=== PATIENT | female | born 1980 | race Caucasian/White ===

== ENCOUNTER 2020-04-04 12:46 | Outpatient (CLI) | payer OTHER, SELFPAY | END 2020-04-04 12:47 | disposition home or self-care (01) | LOC: CHSLAB 12:50 | PROVIDERS: Visit Provider Obstetrics & Gynecology | DX: O26.851 Spotting complicating pregnancy, first trimester (principal) | CPT/HCPCS: 36415; 84702 ==

== ENCOUNTER 2020-04-06 18:39 | Outpatient (CLI) | payer OTHER, SELFPAY | END 2020-04-06 18:40 | disposition home or self-care (01) | LOC: CHSLAB 18:41 | PROVIDERS: PCP Obstetrics & Gynecology; Visit Provider Obstetrics & Gynecology | DX: O26.851 Spotting complicating pregnancy, first trimester (principal) | CPT/HCPCS: 36415; 84702 ==

== ENCOUNTER 2020-09-01 17:27 | Outpatient (CLI) | payer OTHER, SELFPAY ==
[2020-09-01 19:01] LABS: Hematocrit 35.2 % (35.0-49.0); Hemoglobin 11.9 g/dL (12.0-15.0)
[2020-09-01 19:47] LABS: Free T4 Free Thyroxine 0.85 ng/dL (0.76-1.46); Thyroid Stimulating Hormone 0.99 uIU/mL (0.36-3.74)
[2020-09-01 19:51] LABS: HIV 1 P24 AG Negative (Negative); HIV 1/2 AB Negative (Negative)
[2020-09-01 19:53] LABS: Glucose 1 Hour PP 50gm Dose 116 mg/dL (70-130)
[2020-09-07 16:32] LABS: Vitamin D 25 Hydroxy 50 ng/mL (30-100)
== END 2020-09-01 17:28 | disposition home or self-care (01) ==
LOC: CHSLAB 17:28
PROVIDERS: PCP Obstetrics & Gynecology; Visit Provider Obstetrics & Gynecology
DX: Z34.92 Encounter for supervision of normal pregnancy, unspecified, second trimester (principal)
CPT/HCPCS: 36415; 82306; 82947; 84439; 84443; 85014; 85018; 86703

== ENCOUNTER 2020-10-09 14:56 | Outpatient (CLI) | payer OTHER, SELFPAY ==
[2020-10-09] VITALS (31 sets, daily range): BP systolic 116–158; BP diastolic 62–90; PULSE 62–79; O2SAT 99–100
[2020-10-09 16:28] LABS: Basophils Percent Auto 0.3 % (0.2-1.2); Eosinophils Absolute Auto 0.1 K/mm3 (0-0.3); Eosinophils Percent Auto 1.1 % (0-4.4); Hematocrit 32.9 % (37.0-47.0); Hemoglobin 10.7 g/dL (12.0-15.0); Immature Granulocyte Absolute 0.05 K/mm3 (0.00-0.031); Immature Granulocyte Percent A 0.5 % (0-0.5); Lymphocytes Absolute Auto 1.78 K/mm3 (0.9-3.2); Lymphocytes Percent Auto 19.5 % (18.3-44.2); Mean Corpuscular HGB Conc 32.5 g/dl (32-36); Mean Corpuscular Hemoglobin 30.2 pg (26-34); Mean Corpuscular Volume 92.9 fl (80-100); Mean Platelet Volume 10.4 fl (7.4-10.4); Monocytes Absolute Auto 0.8 K/mm3 (0.1-0.6); Monocytes Percent Auto 8.2 % (2.6-8.5); Neutrophils Absolute Auto 6.4 K/mm3 (1.3-6.7); Neutrophils Percent Auto 70.4 % (45.5-73.1); Platelet Count Result 280 k/mm3 (150-375); Red Blood Count 3.54 M/mm3 (4.2-5.4); Red Cell Distribution Width 12.9 % (11.5-14.5); White Blood Count 9.1 K/mm3 (4.5-10.0)
[2020-10-09 16:36] LABS: Alanine Aminotransferase 15 U/L (4-35); Albumin Level 3.3 g/dL (3.5-5.1); Alkaline Phosphatase 97 U/L (38-126); Anion Gap 7 mmol/L (8-16); Aspartate Amino Transferase 21 U/L (14-36); Bilirubin,Total 0.3 mg/dL (0.2-1.3); Blood Urea Nitrogen 9 mg/dL (7-17); Calcium 8.7 mg/dL (8.4-10.2); Carbon Dioxide 22 mmol/L (22-30); Chloride 107 mmol/L (98-107); Estimated Glomerular Filt Rate > 60; Glucose 97 mg/dL (65-105); Potassium 3.9 mmol/L (3.4-5.0); Sodium 136 mmol/L (137-145)
--- NOTE | 2020-10-09 16:37 | PC.NURSE ---
1548--Report to Dr. Sandhu re: v.s., pt's reported Sx and labs drawn one week ago. Orders for PIH workup and foircet.
--- NOTE | 2020-10-09 16:39 | PC.NURSE ---
1456--Pt. presents to L&D with c/o h/a since yesterday afternoon, epigastric pain, and SOB with exertion. Pt. states she tool Tylenol 500mg po at approx. 1130 this a.m. with no relief from h/a. She states she had labs drawn last Monday and showed me printed results from [facility]. DTRs are brisk, no clonus noted, v.s. taken and EFM X2 applied.
[2020-10-09 16:47] LABS: Add Urine Microscopic? YES; Amorphous Sediment Urine Few; Appearance Urine Cloudy (Clear); Bacteria Urine Trace /hpf; Bilirubin Urine Negative (Negative); Blood Urine Negative (Negative); Color Urine Yellow (Yellow); Glucose Urine UA Negative (Negative); Ketones Urine Negative (Negative); Leukocyte Esterase Ur 3+ LEU/UL (NEGATIVE); Mucus Urine Rare /lpf; Nitrate Urine Negative (Negative); Protein Urine Negative (Negative); RBC Urine 0-2 /hpf (0-2); Specific Grav Ur 1.013 (1.001-1.035); Squamous Epithelial Cell Urine Many /hpf (Few); Urobilinogen Urine Negative mg/dL (<2.0)
[2020-10-09 16:48] LABS: Creatinine Urine 64.8 mg/dL; Total Protein Urine Random 16 mg/dL; Ur Ttl Prot Creatinine Ratio 0.25 mg/mg (0-0.20)
[2020-10-09] MEDS: LABETALOL HCL 100 MG TABLET 200 MG PO (17:47)
[2020-10-09] MEDS: MAG HYDROX/AL HYDROX/SIMETH 30 ML UDC PO (17:49)
== END 2020-10-09 21:09 | disposition home or self-care (01) ==
PROVIDERS: PCP Obstetrics & Gynecology; Visit Provider Obstetrics & Gynecology
DX: O13.9 Gestational [pregnancy-induced] hypertension without significant proteinuria, unspecified trimester (principal); Z3A.00 Weeks of gestation of pregnancy not specified
CPT/HCPCS: 36415; 80053; 81001; 82570; 84156; 84550; 85025; 87086; 87088; A9270

== ENCOUNTER 2020-10-10 18:11 | Outpatient (CLI) | payer OTHER, SELFPAY ==
[2020-10-10 18:41] VITALS: BMI 33.0
[2020-10-10 18:42] LABS: Collection Time Urine 24 HOURS
[2020-10-10 18:43] LABS: Patient Weight 198 Lbs; Total Volume 24 Hour Urine 1500 ml
[2020-10-10 18:44] LABS: Serum Creat 0.6; Total Volume 24 Hour Urine 1500 ml
[2020-10-10 19:51] LABS: Total Protein Urine 24 Hr 225 mg/24hr (28-141); Total Protein Urine Random 15 mg/dL
[2020-10-10 19:53] LABS: Creatinine Clearance Urine 98.2 ml/min (75-125); Creatinine Urine 64.2 mg/dL
== END 2020-10-10 18:12 | disposition home or self-care (01) ==
PROVIDERS: Visit Provider Obstetrics & Gynecology
DX: O14.90 Unspecified pre-eclampsia, unspecified trimester (principal); Z3A.00 Weeks of gestation of pregnancy not specified
CPT/HCPCS: 81050; 82575; 84156

== ENCOUNTER 2020-10-23 19:51 | Observation (INO) | payer OTHER, SELFPAY ==
[2020-10-23 20:00] VITALS: BMI 33.7
[2020-10-23 22:01] VITALS: BP 141/80; PULSE 61
--- NOTE | 2020-10-23 22:56 | OBADM ---
This patient, aMisha Alexis, admitted to the OB room Labor/Delivery/Recovery 105 for observation. Patient/family oriented to hospital policies and general routines including ID bracelet, bed and alarms, visiting hours, pain management, procedures, bathroom and other care routines, personal items, smoking policy, room service/diet, and visiting hours. Patient/Family are encouraged to report perceived risks to care and to ask questions if they do not understand what they are told or what they should do.
--- NOTE | 2020-11-06 10:36 | PM.OBTRLD ---
OB - Triage/Final Diagnosis Visit Information Comments/Additional reasons for admission: I have assessed the risk for this patient, Maisha Alexis, and determined that she would benefit from observation care. Final Diagnosis (1) Hypertension: Code(s): I10 - Essential (primary) hypertension Status: Acute
== END 2020-10-23 22:55 | disposition home or self-care (01) ==
PROVIDERS: Admitting Provider Obstetrics & Gynecology; Visit Provider Obstetrics & Gynecology
DX: O16.9 Unspecified maternal hypertension, unspecified trimester (principal); Z3A.00 Weeks of gestation of pregnancy not specified
CPT/HCPCS: G0378; G0379

== ENCOUNTER 2020-10-27 09:00 | Outpatient (RCR) | payer OTHER, SELFPAY ==
--- NOTE | 2020-09-22 16:46 | PTOPEVAL ---
INITIAL PHYSICAL THERAPY EVALUATION and PLAN OF CARE Thank you for referring Maisha Alexis to [facility].? Maisha is scheduled to be seen for physical therapy? 1x/week for 5 weeks. Please review, sign, date and return this plan of care HELDER. I agree with and certify that the following plan of care is medically necessary. Referring Physician Date Admitting Provider: Attending Provider: Andrea Sandhu MD Referring Provider: *PT Outpatient Evaluation Start: 09/22/20 14:58 Freq: Status: Active Protocol: Document 09/22/20 14:58 MURALI (Rec: 09/22/20 16:46 MURALI [id number]) Therapy Assessment Status Assessment Status Assessment Status Evaluation Outpatient Past Medical History Past Medical History Source of Past Medical History Patient Cardiovascular History Hx Hypertension Yes: on medication with 1st & now this Evaluation Information Problem Diagnosis pelvis, pubic bone pain Onset began couple months, worsening last month Subjective Information Maisha reports having Query Text:As Reported By Patient/ similiar symptoms - trouble Family getting out of car, trying to get pants on in single leg stance - with first child. But with this pain is earlier on and more severe. Does wear SIJ belt - does help. Difficulty also with rolling in bed, getting out of bed, walking, etc. 1st delivery - vaginal but post hemorrhage - had bilobe placenta which broke. 1st baby 6# 10 oz this baby could be a little bigger Did have some discomfort following of 1st child - pushing stroller up a hill, etc. for awhile post . 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 Home fluoxetine, labetalol, aspirin Meds Must Be Re-entered With Each Visit. , famotidine, Home Setting Home Type House,Multiple Levels
--- NOTE | 2020-10-27 11:53 | PTOPEVAL ---
PHYSICAL THERAPY DISCHARGE SUMMARY Thank you for referring Maisha Alexis to [facility].? Maisha has been seen x 5 visits. Initially increased progress was made with improving pelvic symmetry, decreasing pain, and increasing core strength. However, within last week her pain has increased again as well as pelvis asymmetry. She is at end point with PT at this time. If she needs further PT post , please refer back to PT. I agree with Maisha's discharge from PT. Referring Physician Date Admitting Provider: Attending Provider: Andrea Sandhu MD Referring Provider: Therapy Assessment Status Assessment Status Assessment Status Discharge Evaluation Information Problem Diagnosis pelvis, pubic bone pain Subjective Information Maisha reports increased Query Text:As Reported By Patient/ difficulty with lying on side Family even with pillows between legs . Increased pain in pubic symphysis region. Been sleeping in recliner - having more back discomfort. Sit to stand going alright. Thought she was going into labor this weekend - but contractions didn't continue and was sent home. To be induced next Monday. Does wear SIJ belt when in standing. Pain Assessment Timing of Pain Assessment Timing of Pain Assessment Assessment Pain Scale Pain Scale Used Numeric (1 - 10) Self Report Pain Assessment Lower Pelvis Reported Pain Level 7 Lowest Pain Intensity 2 Greatest Pain Intensity 9 Palpation Assessment Palpation Palpation Standing - L posterior innominate sidelying - L on L sacrum Increase in tenderness at L SIJ, pubic symphysis - L>R L inguinal region General Exercise General Exercises Exercise Location core/pelvis Exercise Description Discussion had to perform Query Text:Record Sets, Reps, levator ani with hip adduction Resistance, and Position contraction after delivery to promote increase in pelvic symmetry. Also to try levator ani with hip abduction contraction. To use SIJ belt with mobility after delivery as well. Rehab Teaching Rehab Teaching Teaching Topic Rehab Teaching Topic Components Exercise,Home Program As Pertains To Cassandra
== END 2020-10-30 14:39 | disposition home or self-care (01) ==
LOC: ANHPT 09:00
PROVIDERS: PCP Obstetrics & Gynecology; Visit Provider Obstetrics & Gynecology
DX: R10.2 Pelvic and perineal pain (principal)
CPT/HCPCS: 97110; 97140; 97162

== ENCOUNTER 2020-10-31 08:18 | Outpatient (RCR) | payer OTHER, SELFPAY ==
[2020-09-22 16:53] VITALS: BP 136/68; PULSE 74
--- NOTE | 2020-09-26 09:16 | PC.NURSE ---
Dr Sargent notified of Non-reactive NST. BPP ordered.
[2020-09-26 10:00] VITALS: BP 122/71; PULSE 82
[2020-10-03 14:05] VITALS: BP 129/72; PULSE 71
[2020-10-06 17:15] VITALS: BP 134/76; PULSE 80
[2020-10-17 13:41] VITALS: BP 109/61; PULSE 74
--- NOTE | ~2020-10-31 | US_ITS ---
EXAMINATION: US OB BPP wo non-stress DATE: 09/26/2020 09:54 INDICATION: Nonreactive nonstress test, third trimester TECHNIQUE: Real-time pelvic ultrasound was performed. The interpreting radiologist was not present fo r the study. COMPARISON: None. FINDINGS: There is a single living fetus in vertex presentation. The placenta is anterior. heart rate is 144 beats per minute (bpm). Biophysical profile performed by the technologist: breathing (30 sec sustained breathing in 30 minutes): 2 out of 2 movement (3 gross body movements in 30 minutes): 2 out of 2 tone (one episode of pvldjej-wmbysgpki-apcivuk limb movement): 2 out of 2 Amniotic fluid pocket (2 cm): 2 out of 2 Total score: 8 out of 8 IMPRESSION: 1. Single living fetus in vertex presentation. 2. Biophysical profile 8 out of 8. Reviewed, dictated and finalized at location A.
[2020-10-31 08:59] VITALS: BP 128/73; PULSE 74
== END 2020-11-03 07:53 | disposition home or self-care (01) ==
LOC: ANHOBOP 08:18
PROVIDERS: PCP Obstetrics & Gynecology; Visit Provider Obstetrics & Gynecology
DX: O16.3 Unspecified maternal hypertension, third trimester (principal); O09.513 Supervision of elderly primigravida, third trimester; Z3A.32 32 weeks gestation of pregnancy; Z3A.33 33 weeks gestation of pregnancy; Z3A.34 34 weeks gestation of pregnancy; Z3A.35 35 weeks gestation of pregnancy; Z3A.37 37 weeks gestation of pregnancy
CPT/HCPCS: 59025; 76819

== ENCOUNTER 2020-11-02 06:34 | Inpatient (IN) | payer OTHER, SELFPAY ==
[2020-11-02] VITALS (97 sets, daily range): BP systolic 102–162; BP diastolic 56–122; PULSE 56–149; RESP 14; TEMP 36.7–36.9; O2SAT 94–100; BMI 34.1
--- NOTE | 2020-11-02 06:34 | LDADM ---
This patient, Maisha Alexis, was admitted to Labor/Delivery/Recovery 107 on 11/02/20 at 06:34. Plans for labor, pain management and were discussed with patient. Patient/family oriented to hospital policies and general routines including ID bracelet, bed and alarms, visiting hours, pain management, procedures, bathroom and other care routines, personal items, smoking policy, room service/diet and guest tray routines, security routines, and visiting hours. Patient/Family are encouraged to report perceived risks to care and to ask questions if they do not understand what they are told or what they should do. See OBIX for further documentation.
[2020-11-02 07:18] LABS: Basophils Percent Auto 0.4 % (0.2-1.2); Eosinophils Absolute Auto 0.1 K/mm3 (0-0.3); Eosinophils Percent Auto 0.9 % (0-4.4); Hematocrit 34.1 % (37.0-47.0); Hemoglobin 11.1 g/dL (12.0-15.0); Immature Granulocyte Absolute 0.07 K/mm3 (0.00-0.031); Immature Granulocyte Percent A 0.7 % (0-0.5); Lymphocytes Absolute Auto 2.14 K/mm3 (0.9-3.2); Lymphocytes Percent Auto 20.1 % (18.3-44.2); Mean Corpuscular HGB Conc 32.6 g/dl (32-36); Mean Corpuscular Hemoglobin 29.9 pg (26-34); Mean Corpuscular Volume 91.9 fl (80-100); Mean Platelet Volume 10.9 fl (7.4-10.4); Monocytes Absolute Auto 0.6 K/mm3 (0.1-0.6); Monocytes Percent Auto 5.7 % (2.6-8.5); Neutrophils Absolute Auto 7.7 K/mm3 (1.3-6.7); Neutrophils Percent Auto 72.2 % (45.5-73.1); Platelet Count Result 326 k/mm3 (150-375); Red Blood Count 3.71 M/mm3 (4.2-5.4); Red Cell Distribution Width 13.2 % (11.5-14.5); White Blood Count 10.7 K/mm3 (4.5-10.0)
[2020-11-02] MEDS: LACTATED RINGERS 1,000 ML 125 ML IV CONT ×2 (07:25→12:45)
[2020-11-02] MEDS: OXYTOCIN 30 UNITS/NS 500 ML 30 UNITS/500 ML BAG IV CONT (07:26)
[2020-11-02 07:27] LABS: Alanine Aminotransferase 19 U/L (4-35); Albumin Level 3.5 g/dL (3.5-5.1); Alkaline Phosphatase 126 U/L (38-126); Anion Gap 7 mmol/L (8-16); Aspartate Amino Transferase 23 U/L (14-36); Bilirubin,Total 0.3 mg/dL (0.2-1.3); Blood Urea Nitrogen 13 mg/dL (7-17); Carbon Dioxide 19 mmol/L (22-30); Chloride 108 mmol/L (98-107); Estimated CRCL calculation 121 ml/min; Estimated Glomerular Filt Rate > 60; Glucose 125 mg/dL (65-110); Potassium 3.8 mmol/L (3.4-5.0); Sodium 134 mmol/L (137-145); Uric Acid 4.7 mg/dL (2.5-7.5)
[2020-11-02 07:29] LABS: Add Urine Microscopic? YES; Appearance Urine Cloudy (Clear); Bacteria Urine Trace /hpf; Bilirubin Urine Negative (Negative); Blood Urine Negative (Negative); Color Urine Yellow (Yellow); Glucose Urine UA Negative (Negative); Ketones Urine Negative (Negative); Leukocyte Esterase Ur Trace LEU/UL (NEGATIVE); Mucus Urine Few /lpf; Nitrate Urine Negative (Negative); Protein Urine 1+ mg/dL (Negative); RBC Urine 0-2 /hpf (0-2); Specific Grav Ur 1.027 (1.001-1.035); Squamous Epithelial Cell Urine Many /hpf (Few); Urobilinogen Urine Negative mg/dL (<2.0)
--- NOTE | 2020-11-02 10:56 | WPDANESEPP ---
Anes - Eval Pre Procedure Procedure: labor epidural Date/Time: 11/02/20 10:56 Pre Op Diagnosis: IOL Patient Data Age: 40 Gender: F Height: 1.65 m Weight: 93 kg Last Vital Signs Temp 36.8 C 11/02/20 10:00 Pulse 63 11/02/20 09:46 BP 157/80 H 11/02/20 09:46 Allergies Allergy/AdvReac Type Severity Reaction Status Date / Time amoxicillin Allergy Severe SWELLING,HI Verified 11/16/17 13:38 VES cefaclor Allergy Severe SWELLING,HI Verified 11/16/17 13:38 VES dirithromycin Allergy Severe SWELLING,HI Verified 11/16/17 13:38 VES Home Medications Medication Instructions Recorded Confirmed Type Claritin 10 mg PO DAILY 09/22/20 11/02/20 History Vitamin 1 tablet PO DAILY 09/22/20 11/02/20 History Probiotic 1 tablet PO DAILY 09/22/20 11/02/20 History Vitamin D3 40 meq PO DAILY 09/22/20 11/02/20 History aspirin 81 mg PO DAILY 09/22/20 11/02/20 History docusate sodium 50 mg PO DAILY 09/22/20 11/02/20 History famotidine 20 mg PO BID 09/22/20 11/02/20 History fluoxetine 20 mg PO DAILY 09/22/20 11/02/20 History labetalol 200 mg PO TID 09/22/20 11/02/20 History montelukast 10 mg PO DAILY 09/22/20 10/17/20 History Laboratory Tests 11/02/20 11/02/20 11/02/20 06:56 06:56 06:56 WBC 10.7 K/mm3 H K/mm3 (4.5-10.0) RBC 3.71 M/mm3 L M/mm3 (4.2-5.4) Hgb 11.1 g/dL L g/dL (12.0-15.0) Hct 34.1 % L % (37.0-47.0) MCV 91.9 fl fl (80-100) MCH 29.9 pg pg (26-34) MCHC 32.6 g/dl g/dl (32-36) RDW 13.2 % % (11.5-14.5) Plt Count 326 k/mm3 k/mm3 (150-375) MPV 10.9 fl H fl (7.4-10.4) Immature Gran % (Auto) 0.7 % H % (0-0.5) Neut % (Auto) 72.2 % % (45.5-73.1) Lymph % (Auto) 20.1 % % (18.3-44.2) [place] % (Auto) 5.7 % % (2.6-8.5) Eos % (Auto) 0.9 % % (0-4.4) Baso % (Auto) 0.4 % % (0.2-1.2) Lymph # (Auto) 2.14 K/mm3 K/mm3 (0.9-3.2) [place] # (Auto) 0.6 K/mm3 K/mm3 (0.1-0.6) Eos # (Auto) 0.1 K/mm3 K/mm3 (0-0.3) Baso # (Auto) 0.0 K/mm3 K/mm3 (0.0-0.1) Abs Immat Gran (auto) 0.07 K/mm3 H K/mm3 (0.00-0.031) Absolute Neuts (auto) 7.7 K/mm3 H K/mm3 (1.3-6.7) Absolute Nucleated RBC 0.0 K/mm3 K/mm3 (0.0-0.012) Nucleated RBC % 0.0 % % (0.0-0.2) Sodium Potassium Chloride Carbon Dioxide Anion Gap BUN Creatinine Estim Creat Clear Calc Estimated GFR Glucose Uric Acid Calcium Total Bilirubin AST ALT Alkaline Phosphatase Total Protein Albumin Urine Color Urine Appearance Urine pH Ur Specific [place] Urine Protein Urine Glucose (UA) Urine Ketones Ur Blood (Man) Urine Nitrate Urine Bilirubin Urine Urobilinogen Ur Leukocyte Esterase Urine RBC Urine WBC Ur Squamous Epith Cells Urine Bacteria Urine Mucus RPR Pending Blood Type O Positive Antibody Screen Negative 11/02/20 11/02/20 06:56 06:56 WBC RBC Hgb Hct MCV MCH MCHC RDW Plt Count MPV Immature Gran % (Auto) Neut % (Auto) Lymph % (Auto) [place] % (Auto) Eos % (Auto) Baso % (Auto) Lymph # (Auto) [place] # (Auto) Eos # (Auto) Baso # (Auto) Abs Immat Gran (auto) Absolute Neuts (auto) Absolute Nucleated RBC Nucleated RBC % Sod
--- NOTE | 2020-11-02 11:30 | WPDOBADMIT ---
Obstetrics - Admit Note Admission Note: record reviewed. No pertinent additions to the history and/or any subsequent changes in the physical findings that are not consistent with the expected course of the were found. AROm meconium stained fluid /-2 vertex Additions to the history and/or subsequent changes in the physical findings follow. None.
[2020-11-02] MEDS: MAG HYDROX/AL HYDROX/SIMETH 30 ML UDC PO (13:43)
[2020-11-02] MEDS: SODIUM CHLORIDE 0.9% IV 300 ML 600 ML I-UTERINE (15:05)
[2020-11-02] MEDS: OXYTOCIN 30 UNITS/NS 500 ML 30 UNITS/500 ML BAG 125 UNITS IV CONT (16:25)
[2020-11-02] MEDS: BENZOCAINE 20% AER SPR (*SP) 56 GM CAN 1 SPRAY TOPICAL (16:26)
[2020-11-02] MEDS: WITCH HAZEL 40 PADS 1 PAD TOPICAL (16:26)
[2020-11-02] MEDS: IBUPROFEN 600 MG TABLET PO ×2 (16:26→23:18)
[2020-11-03] MEDS: HYDROcodone/acetaminophen (*CRX) 5-325 MG TABLET 1 TAB PO ×2 (02:54→21:28)
[2020-11-03 04:40] VITALS: BP 129/70; PULSE 75; RESP 15; TEMP 36.5; O2SAT 98
[2020-11-03] MEDS: IBUPROFEN 600 MG TABLET PO ×2 (04:45→14:53)
[2020-11-03 05:13] LABS: Hematocrit 32.5 % (37.0-47.0); Hemoglobin 10.6 g/dL (12.0-15.0)
[2020-11-03 07:30] VITALS: BP 152/77; PULSE 76; RESP 18; TEMP 36.4; O2SAT 99
[2020-11-03] MEDS: LORATADINE 10 MG TABLET PO (07:36)
[2020-11-03] MEDS: MONTELUKAST SODIUM 10 MG TABLET PO (07:36)
[2020-11-03] MEDS: FLUoxetine HCL 20 MG CAPSULE PO (07:36)
[2020-11-03] MEDS: FAMOTIDINE 20 MG TABLET PO ×2 (07:37→21:28)
--- NOTE | 2020-11-03 07:42 | WPDANLDPN2 ---
Anes-Prog Note L&D Date/Time: 11/03/20 07:42 Comfortable throughout: labor and delivery Neuraxial method: epidural Epidural/Spinal procedure site: clean & non-tender Neuro status: Neuro function grossly intact. Cardiovascular status: normal Respiratory status: normal Airway patency: baseline Mental status: baseline Post-Op hydration status: normal Vital Signs: Last Vital Signs Temp 36.5 C 11/03/20 04:40 Pulse 75 11/03/20 04:40 Resp 15 11/03/20 04:40 BP 129/70 11/03/20 04:40 Pulse Ox 98 11/03/20 04:40 Pain score (VAS): 3 I/O: Intake & Output 11/02/20 11/02/20 11/03/20 15:59 23:59 07:59 Intake Total 1000 500 Balance 1000 500 Post-procedural complaints: none Patient feedback: Patient satisfied with anesthetic care.
[2020-11-03 10:05] LABS: Rapid Plasma Reagin Non-Reactive (NonReactive)
[2020-11-03] MEDS: ACETAMINOPHEN 325 MG TABLET 650 MG PO ×2 (10:17→17:14)
[2020-11-03 12:00] VITALS: BP 152/81; PULSE 75; RESP 18; TEMP 36.7; O2SAT 99
--- NOTE | 2020-11-03 17:11 | PM.OBPNVD ---
OB - PN: Subj Subjective Date/time seen: 11/03/20 17:11 doing well no complaints OB - PN: Obj Data Labs CBC & Chem 7: 11/03/20 04:41 11/02/20 06:56 Labs: Laboratory Results - last 24 hr 11/02/20 11/03/20 06:56 04:41 Hgb 10.6 L Hct 32.5 L RPR Non-reactive OB - PN A/P Assessment and Plan (1) (normal spontaneous vaginal delivery): Code(s): O80 - Encounter for full-term uncomplicated delivery Status: Acute Assessment and Plan: continue with post care Time Spent With Patient Time: Total time spent is greater than 50% in coordination of care (as documented) at patient's floor/unit and/or counseling patient: Exam Narrative: Exam Narrative: ff umbilicus
--- NOTE | 2020-11-03 17:44 | PC.NURSE ---
Patient viewed the discharge video Mother & Baby Care, The First Two Weeks . Patient was given the opportunity and encouraged to ask questions. Patient verbalized understanding of information shared and has been given the mother/baby guide for home reference.
[2020-11-03 19:00] VITALS: BP 144/77; PULSE 68; RESP 18; TEMP 36.8
[2020-11-04] MEDS: IBUPROFEN 600 MG TABLET PO ×2 (03:20→07:37)
[2020-11-04] MEDS: DOCUSATE SODIUM 100 MG CAPSULE PO (07:35)
[2020-11-04] MEDS: BENZOCAINE 20% AER SPR (*SP) 56 GM CAN 1 SPRAY TOPICAL (07:35)
[2020-11-04] MEDS: WITCH HAZEL 40 PADS 1 PAD TOPICAL (07:35)
[2020-11-04] MEDS: HYDROcodone/acetaminophen (*CRX) 5-325 MG TABLET 1 TAB PO (07:36)
[2020-11-04] MEDS: LORATADINE 10 MG TABLET PO (07:37)
[2020-11-04] MEDS: FAMOTIDINE 20 MG TABLET PO (07:37)
[2020-11-04] MEDS: FLUoxetine HCL 20 MG CAPSULE PO (07:38)
[2020-11-04] MEDS: MONTELUKAST SODIUM 10 MG TABLET PO (07:38)
[2020-11-04 07:42] VITALS: BP 143/79; PULSE 72; RESP 18; TEMP 36.6; O2SAT 100
--- NOTE | 2020-11-04 08:45 | P.PNOB_ITS ---
OB - PN: Subj Subjective Date/time seen: 11/04/20 08:45 doing well no complaints OB - PN: Obj Data Labs CBC & Chem 7: 11/03/20 04:41 11/02/20 06:56 Labs: Laboratory Results - last 24 hr 11/02/20 06:56 RPR Non-reactive OB - PN A/P Assessment and Plan (1) (normal spontaneous vaginal delivery): Code(s): O80 - Encounter for full-term uncomplicated delivery Status: Acute Assessment and Plan: d/c home (2) Hypertension: Code(s): I10 - Essential (primary) hypertension Status: Acute Assessment and Plan: restart labetalol 100 mg po bid and f/u in 1 week for bp check. Time Spent With Patient Time: Total time spent is greater than 50% in coordination of care (as documented) at patient's floor/unit and/or counseling patient: Exam 2 Narrative: Exam Narrative: ff below umbilicus
--- NOTE | 2020-11-04 09:38 | PC.NURSE ---
Self care and infant care discharge instructions given including follow up visit date and time. Mother verbalized understanding. No questions or concerns voiced. Very pleasant and cooperative. Anxious for discharge. at side.
[2020-11-05 11:06] VITALS: BP 160/81; PULSE 72; RESP 20; TEMP 37.2; O2SAT 100
--- NOTE | 2020-11-16 12:02 | PM.OBPRVD ---
OB - Delivery Note Procedure Delivery date: 11/02/20 Procedure: IOL events: Induced HTN (chtn in ) Intrapartal events: None Induction method: AROM and per pitocin protocol Delivery monitor: external FHT and external uterine Route of delivery: Laceration Description: Labial Specimen: Yes Quantitative Blood Loss (ml): 210 Anesthesia type: Epidural Disposition: floor [place] Baby Date of : 11/02/20 Time of : 15:46 Weeks of gestation at delivery: 38 Infant gender: Female Weight (pounds): 6 Weight (ounces): 3 presentation: vertex position: Left Occiput Anterior cord vessel description: 3 Vessels and Clamped/Cut score one minute: 8 score five minutes: 9
--- NOTE | 2020-11-16 12:05 | PM.OBDSVD ---
DS: Admitting Diagnosis Admitting Diagnosis IOL OB - DS: Summary OB Procedures : NST OB Procedures Intrapartum: Spontaneous Vag Delivery OB Procedures: : None Time Spent with Patient Time attestation: Total time spent providing and/or coordinating discharge services: DS: Data Data Completed and Pending Completed studies during hospitalization: Pending at discharge 11/02/20 16:10 Surgical [PTH] Routine Discharge Plan Discharge Attending physician on discharge: Andrea Sandhu Discharging Clinician: Andrea Sandhu Patient Disposition: Home, Self-Care Activity: may shower and pelvic rest Diet: regular Discharge Instructions: Education: Mom and Baby Guide Given to: Mother Follow-Up: Call your delivering provider's office for an appointment to be seen in: 4 Weeks Mom and baby should come to the [facility] for the follow-up appointment. Appointment Date/Time: October at 11:00 am What to expect at your follow-up visit: Blood Pressure Check Physical Assessment Call [phone] if you are unable to keep your appointment time. BREAST CARE: * Wear a snug supportive bra. Bottle Feeding: * May apply ice packs EPISIOTOMY/PERINEAL CARE * Until bleeding stops, use your jami bottle after urinating * Change your pad frequently throughout the day * You may take sitz baths several times a day (fill your bathtub with warm water and soak for 20 minutes.) Do NOT bathe in the water * No tub baths until seen by your physician - You may shower ACTIVITY: * Rest as much as possible. * Do not exercise or lift anything heavier than your baby (such as laundry or other children.) * Avoid stairs or driving as much as possible. * Do not put anything into the vagina. No douching, tampons, or sexual activity until seen by physician. NOTIFY PHYSICIAN IF YOU HAVE ANY QUESTIONS OR IF ANY OF THE FOLLOWING SYMPTOMS OCCUR: * If your episiotomy becomes red, swollen, or more painful than what you have experienced in the hospital. * If your vaginal bleeding becomes foul smelling. * If your vaginal bleeding becomes more heavy than a period or if your bleeding changes from pink to bright red. However, you may pass an occasional walnut-sized clot once or twice for the first week . * If you experience a sharp, shooting pain in you calves. * If you discover a hard, reddened area on your breast or if you experience flu-like symptoms. DIET: * Eat regular, well-balanced meals. * Drink plenty of fluids daily. If , drink to thirst. Patient Instructions: Antibiotic Form Stand Alone Forms: General Discharge Information Follow-up/Referrals: Andrea Sandhu MD [Physician] - 4 Weeks Discharge Medications: New norethindrone (contraceptive) [Nusrat] 0.35 mg tablet 0.35 mg PO DAILY Qty: 84 RF: 0 labetalol 100 mg tablet 100 mg PO Q12H Qty: 60 RF: 0 Continued docusate sodium 50 mg Capsule 50 mg PO DAILY RF: 0 Claritin 10 mg PO DAILY RF: 0 Vitamin 1 tablet PO DAILY RF: 0 Probiotic 1 tablet PO DAILY RF: 0 Vitamin D3 40 meq PO DAILY RF: 0 famotidine 20 mg PO BID RF: 0 fluoxetine 20 mg PO DAILY RF: 0 montelukast 10 mg PO DAILY RF: 0 Discontinued aspirin 81 mg PO DAILY RF: 0 labetalol 200 mg PO TID RF: 0 Date of admission: 11/02/20 06:34 Primary Care Provider: PHYSICIAN,ARMATURE INSPECTOR Admitting Provider: Anrdea Sandhu Attending physician on admission: Andrea Sandhu Condition: Stable
== END 2020-11-04 10:35 | disposition home or self-care (01) | DRG 807 ==
LOC: ANHLDR 06:36 → ANHOB2 19:23
PROVIDERS: Admitting Provider Obstetrics & Gynecology; Visit Provider Obstetrics & Gynecology
DX: O10.92 Unspecified pre-existing hypertension complicating childbirth (principal); Z37.0 Single live birth; Z3A.38 38 weeks gestation of pregnancy; O77.0 Labor and delivery complicated by meconium in amniotic fluid; O70.1 Second degree perineal laceration during delivery; O99.214 Obesity complicating childbirth; E66.9 Obesity, unspecified; O99.344 Other mental disorders complicating childbirth; F41.9 Anxiety disorder, unspecified; F32.9 Major depressive disorder, single episode, unspecified
CPT/HCPCS: 36415; 80053; 81001; 84550; 85014; 85018; 85025; 86592; 86850; 86900; 86901; 88307; A9270; J2590; J2795; J7030; J7120

== ENCOUNTER → 2021-12-21 12:49 | Outpatient (CLI) | payer OTHER, SELFPAY ==
--- NOTE | ~2021-12-21 | XR_ITS ---
EXAM: XR lumbar spine 2-3V DATE: 12/21/2021 13:18 HISTORY: Low back pain, unspecified . COMPARISON: None available. FINDINGS: 5 nonrib-bearing lumbar-type vertebral bodies. Pedicles intact. Normal vertebral body alig nment. Vertebral body heights preserved. Disc spaces maintained. Normal facets and posterior elements . No fracture or dislocation. IUD. Pelvic phleboliths. IMPRESSION: Normal lumbar spine radiograph findings. Reviewed, dictated and finalized at location K.
== END ==
PROVIDERS: PCP Family Medicine; Visit Provider Physician Assistant
DX: M54.50 Low back pain, unspecified (principal)
CPT/HCPCS: 72100

== ENCOUNTER → 2022-02-16 13:34 | Outpatient (CLI) | payer OTHER, SELFPAY ==
--- NOTE | ~2022-02-16 | MM_ITS ---
EXAMINATION: MM screening leonardo BI w dex HISTORY: Screening mammogram TECHNIQUE: Craniocaudal and mediolateral oblique 3-D tomosynthesis images were obtained and synthetic 2-D images were generated. CAD analysis was submitted and interpreted. COMPARISON: No prior mammogram is available for comparison at this institution. BREAST PARENCHYMAL COMPOSITION: The breasts are heterogeneously dense, which may obscure small masses . FINDINGS: There are bilateral asymmetries. Bilateral diagnostic mammography and breast ultrasound exa mination are recommended. IMPRESSION: 1. Bilateral mammographic asymmetries 2. Bilateral diagnostic mammography and breast ultrasound examination are recommended BI-RADS Category 0: Incomplete: Needs additional imaging evaluation. Reviewed, dictated and finalized at location A. DEGRADATION ANALYST IMPRESSION: 1. Bilateral mammographic asymmetries 2. Bilateral diagnostic mammography and breast ultrasound examination are recom mended BI-RADS Category 0: Incomplete: Needs additional imaging evaluation.
== END ==
PROVIDERS: PCP Family Medicine; Visit Provider Nurse Practitioner
DX: Z12.31 Encounter for screening mammogram for malignant neoplasm of breast (principal); R92.8 Other abnormal and inconclusive findings on diagnostic imaging of breast
CPT/HCPCS: 77063; 77067

== ENCOUNTER → 2022-03-09 09:24 | Outpatient (CLI) | payer OTHER, SELFPAY ==
--- NOTE | ~2022-03-09 | MM_ITS ---
EXAMINATION: MM diagnostic leonardo BI w dex HISTORY: Possible breast asymmetries on screening mammogram TECHNIQUE: Additional 3-D tomosynthesis images of the breasts were performed and synthetic 2-D images were generated. CAD analysis was submitted and interpreted. COMPARISON: 02/16/2022, 12/31/2020 FINDINGS: There is a return to baseline fibroglandular appearance with spot compression of the breast s in the areas questioned on screening mammogram. No suspicious mass, calcification, or architectural distortion are identified. IMPRESSION: 1. No mammographic evidence of malignancy. 2. Recommend routine screening mammography in one year. BI-RADS Category 1: Negative Reviewed, dictated and finalized at location A. RMATION SYSTEMS SECURITY SPECIALIST
== END ==
PROVIDERS: PCP Family Medicine; Visit Provider Physician Assistant
DX: R92.8 Other abnormal and inconclusive findings on diagnostic imaging of breast (principal)
CPT/HCPCS: 77062; 77066; G0279

== ENCOUNTER 2022-03-18 08:31 | Outpatient (CLI) | payer OTHER, SELFPAY ==
--- NOTE | 2022-03-31 14:07 | WPDPFTINT ---
PFT Procedure Performed PFT Procedure Performed Spirometry with Pre/Post Bronchodilator Plethysmography (Lung Vol) Diffusing Cap (DLCO) Flow Vol Loop PFT Interpretation DOS: 03/18/2022 REQUESTING: Veena Fuller PA-C REASON FOR TESTING: Shortness of breath PULMONARY FUNCTION TESTS The patient has had RSV, COVID and influenza in the last 6 months. She was scheduled for a methacholine challenge to follow this test, however she had antihistamines prior to testing. This medicaiton cannot be taken prior to a methacholine challenge. She is scheduled to return Apr 08 for MTC. Results are reliable and reproducible. Spirometry: FEV1 is 3.61 L, 104%, normal. FEV1 is 2.95 L, 101%, normal. FEV1/ FVC ratio was 82%. No bronchodilator was given. Lung volumes: Total lung capacity is 5.09 L, 97% predicted, normal. Slow vital capacity is 3.72 L, 108% predicted, normal. Residual volume 1.37 L, 79% predicted, normal. RV/TLC is 27%, not elevated, no air trapping. Airway resistance 139%, elevated. Diffusion: DLCO 21.9 ml/min/mmHg, 85% predicted, normal. DLCO/VA is 4.45 ml/min/mmHg/L, 108% predicted, normal. Flow volume loop: Normal. IMPRESSION: Normal spirometry without bronchodilator, normal lung volumes, and normal diffusion. Felicia Ku MD
== END 2022-03-18 08:32 | disposition home or self-care (01) ==
LOC: CHSCARD 08:34
PROVIDERS: PCP Family Medicine; Visit Provider Physician Assistant
DX: R06.02 Shortness of breath (principal)
CPT/HCPCS: 94010; 94726; 94729

== ENCOUNTER 2022-04-08 12:28 | Outpatient (CLI) | payer OTHER, SELFPAY ==
--- NOTE | 2022-04-12 11:58 | WPDMETH ---
Methacholine Procedure Perform Procedure Performed Methacholine Challenge Methacholine Challenge Methacholine Challenge: METHACHOLINE CHALLENGE This test was conducted per ATS guidelines. A previous PFT on 03/18/2022 showed normal spirometry without bronchodilator, normal lung volumes, and? normal diffusion. The patient was exposed to sequentially increasing doses of methacholine in the usual manner. Level 0- saline, baseline Level 1 - 0.1875 mg/3 mL ( 0.0625 mg/mL) Level 2 - 0.75 mg/3 mL ( 0.25 mg/mL) Level 3 - 3 mg/3 mL (1 mg/mL) Level 4 - 12 mg/3 mL ( 4 mg/mL) Level 5 - 48 mg/3 mL ( 16 mg/mL) The test was stopped after the fifth and final dose of methacholine. There was no drop in FVC or FEV1 at a critical level. This is a normal methacholine challenge. Flows were in the normal range after the fifth dose. IMPRESSION: This is a negative methacholine challenge. The best use for a methacholine challenge is to rule out asthma. Clinical correlation is advised.
== END 2022-04-08 12:29 | disposition home or self-care (01) ==
PROVIDERS: PCP Family Medicine; Visit Provider Physician Assistant
DX: J45.40 Moderate persistent asthma, uncomplicated (principal)
CPT/HCPCS: 94070; 94726; 94729; J7674

== ENCOUNTER → 2023-05-17 10:04 | Outpatient (CLI) | payer OTHER, SELFPAY ==
--- NOTE | ~2023-05-17 | US_ITS ---
EXAMINATION: US transvaginal DATE: 05/17/2023 10:51 INDICATION: Left pelvic pain TECHNIQUE: Multiple endovaginal sonographic images of the pelvis were obtained. COMPARISON: None. FINDINGS: The uterus measures 7.4 x 3.4 x 4.4 cm. An IUD is present in expected position. The endomet rial complex measures 4 mm. The right ovary measures 2.3 x 1.8 x 3.0 cm. The left ovary measures 2.5 x 1.2 x 2.5 cm. There is normal vascular flow in the ovaries. There is no free fluid in the pelvis. IMPRESSION: 1. No sonographic correlate for the patient's symptoms. Reviewed, dictated and finalized at location B. LATION CUPOLA OPERATOR
--- NOTE | ~2023-05-17 | MM_ITS ---
EXAMINATION: MM screening leonardo BI w dex HISTORY: Screening mammogram TECHNIQUE: Craniocaudal and mediolateral oblique 3-D tomosynthesis images were obtained and synthetic 2-D images were generated. CAD analysis was submitted and interpreted. COMPARISON: 03/09/2022 diagnostic bilateral mammogram 02/16/2022, 12/31/2020 bilateral screening mammogram examinations BREAST PARENCHYMAL COMPOSITION: The breasts are heterogeneously dense, which may obscure small masses . FINDINGS: There is no evidence of suspicious mass, calcification, or architectural distortion to sugg est malignancy in either breast. There has been no suspicious interval change. IMPRESSION: 1. No mammographic evidence of malignancy. 2. Recommend routine screening mammography in one year. BI-RADS Category 1: Negative Reviewed, dictated and finalized at location A. P COLLECTOR
== END ==
PROVIDERS: PCP Nurse Practitioner; Visit Provider Nurse Practitioner
DX: Z12.31 Encounter for screening mammogram for malignant neoplasm of breast (principal); R19.09 Other intra-abdominal and pelvic swelling, mass and lump
CPT/HCPCS: 76830; 77063; 77067

== ENCOUNTER 2024-06-11 13:02 | Outpatient (CLI) | payer OTHER, SELFPAY | END 2024-06-11 13:03 | disposition home or self-care (01) | PROVIDERS: PCP Nurse Practitioner; Visit Provider Nurse Practitioner | DX: Z12.31 Encounter for screening mammogram for malignant neoplasm of breast (principal) | CPT/HCPCS: 77063; 77067 ==